=== PATIENT | female | born 1955 | race Caucasian/White ===

== ENCOUNTER 2022-10-25 07:30 | Observation (INO) | payer MEDICARE ==
[2022-10-22 11:06] VITALS: BMI 27.6
[2022-10-25] MEDS ORDERED: Ropivacaine 0.5% HCl/PF (150 MG/30 ML VIAL) ONE (07:41)
[2022-10-25] MEDS ORDERED: Midazolam HCl 2 mg/2 ml Vial ONE (07:41)
[2022-10-25] MEDS ORDERED: fentaNYL 50 mcg/mL 1 mL Vial ONE ×2 (07:41→11:26)
[2022-10-25] MEDS ORDERED: Vancomycin 1 GM/200 ML (FROZEN) BAG ONE (08:14)
[2022-10-25] MEDS ORDERED: Tranexamic Acid 1,000 MG/10 ML VIAL ONE (08:14)
[2022-10-25] MEDS ORDERED: Sodium Chloride 0.9% 100 ML ONE ×2 (08:15→09:30)
[2022-10-25] MEDS ORDERED: diphenhydrAMINE 25 MG CAP PO PRN (09:23)
[2022-10-25] MEDS ORDERED: Zolpidem Tartrate 5 MG TAB PO PRN (09:23)
[2022-10-25] MEDS ORDERED: fentaNYL 50 mcg/mL 1 mL Vial SLOW IVP PRN (09:23)
[2022-10-25] MEDS ORDERED: HYDROcodone/Acetaminophen 10/325 mg Tablet PO PRN (09:23)
[2022-10-25] MEDS ORDERED: Ondansetron PF 4 MG/2 ML Vial IVP PRN (09:23)
[2022-10-25] MEDS ORDERED: Promethazine HCl 25 MG/ML VIAL IM PRN (09:23)
[2022-10-25] MEDS ORDERED: Acetaminophen 325 MG TAB PO PRN (09:23)
[2022-10-25] MEDS ORDERED: Bupivacaine HCl 0.5%/Epinephrine 1:200,000/PF 30 ml Vial ONE (09:27)
[2022-10-25] MEDS ORDERED: Cholecalciferol 1,000 UNITS (25 MCG) TAB PO SCH (09:30)
[2022-10-25] MEDS ORDERED: CEFAZOLIN 2 GM VIAL ONE (09:30)
[2022-10-25] MEDS ORDERED: CEFAZOLIN 2 GM in Sodium Chloride 0.9% 100 ML IVPB SCH (10:00)
[2022-10-25] MEDS ORDERED: PHENYLEPHRINE-NS 100 MCG/ML 10 ML SYRINGE ONE (10:03)
[2022-10-25] MEDS ORDERED: GLYCOPYRROLATE/PF 0.2 MG/ML VIAL ONE (10:03)
[2022-10-25] MEDS ORDERED: Ketorolac Tromethamine 30 MG/ML VIAL ONE (11:45)
[2022-10-25] MEDS: HYDROcodone/Acetaminophen 10/325 mg Tablet PO PRN ×3 (13:46→22:16)
[2022-10-25] MEDS ORDERED: Ketorolac Tromethamine 30 MG/ML VIAL IVP SCH (14:00)
[2022-10-25] MEDS: CEFAZOLIN 2 GM in Sodium Chloride 0.9% 100 ML IVPB SCH (16:41)
[2022-10-25] MEDS: Sodium Chloride 0.9% 1,000 ML IV SCH ×2 (17:41→20:45)
[2022-10-25] MEDS: Ketorolac Tromethamine 30 MG/ML VIAL IVP SCH (20:47)
[2022-10-25] MEDS: Aspirin 81 mg Enteric Coated Tablet PO SCH (20:50)
[2022-10-25] MEDS: Senokot S 8.6-50 MG TAB PO SCH (20:51)
[2022-10-25] MEDS: Ferrous Gluconate 324 MG TAB PO SCH (20:51)
[2022-10-25] MEDS ORDERED: Rosuvastatin 5 MG TAB PO SCH (21:00)
[2022-10-26] MEDS: CEFAZOLIN 2 GM in Sodium Chloride 0.9% 100 ML IVPB SCH (01:52)
[2022-10-26] MEDS: HYDROcodone/Acetaminophen 10/325 mg Tablet PO PRN ×4 (01:53→14:08)
[2022-10-26] MEDS: Sodium Chloride 0.9% 1,000 ML IV SCH (04:24)
[2022-10-26] MEDS: Ketorolac Tromethamine 30 MG/ML VIAL IVP SCH ×2 (04:36→11:28)
[2022-10-26 05:31] LABS: Hemoglobin 11.4 g/dL (12.0-16.0); Mean Corpuscular HGB CONC 31.8 g/dL (32.0-36.0); Mean Corpuscular Volume 91.3 fl (78.0-98.0); Mean Platelet Volume 9.3 fL (7.4-10.4); Platelet Count 221 10x3/uL (130-400); RBC Distribution Width 13.2 % (11.5-14.5); Red Blood Cell (RBC) Count 3.93 mill/uL (4.20-5.40); White Blood Cell (WBC) Count 11.4 10x3/uL (4.8-10.8)
[2022-10-26] MEDS: Aspirin 81 mg Enteric Coated Tablet PO SCH (08:52)
[2022-10-26] MEDS: Senokot S 8.6-50 MG TAB PO SCH (08:52)
[2022-10-26] MEDS: Ferrous Gluconate 324 MG TAB PO SCH (08:53)
[2022-10-26] MEDS ORDERED: Amlodipine 10 MG TAB PO SCH (09:00)
[2022-10-26] MEDS ORDERED: Multivitamin W/ Minerals 1 TAB PO SCH (09:00)
[2022-10-26] MEDS ORDERED: Famotidine 20 MG TAB PO SCH (09:45)
[2022-10-26 11:31] VITALS: TEMP 97.9
[2022-10-26 15:31] VITALS: BP 99/63
== END 2022-10-26 16:04 | disposition home or self-care (01) ==
LOC: SDC 07:30 → SJJU 12:56
PROVIDERS: ADMIT Orthopaedic Surgery; ATTEND Orthopaedic Surgery
PROC: 0SR9069 Replacement of Right Hip Joint with Oxidized Zirconium on Polyethylene Synthetic Substitute, Cemented, Open Approach (ICD-10-PCS; principal; 2022-10-25)
DX: M16.11 Unilateral primary osteoarthritis, right hip (principal); J45.909 Unspecified asthma, uncomplicated; I10 Essential (primary) hypertension; R63.5 Abnormal weight gain; Z79.899 Other long term (current) drug therapy
CPT/HCPCS: 27130; 73502; 85027; 97110 ×2; 97116; 97530; 97535; C1776; J3010; J3370; J3490; 36415; J1885; J2250; J2405; J2795; J7050

== ENCOUNTER 2024-03-26 19:13 | Inpatient (IN) | payer MEDICARE ==
[2024-03-26] MEDS ORDERED: fentaNYL 50 mcg/mL 1 mL Vial ONE (20:19)
[2024-03-26 20:52] LABS: #Basophils 0.03 10x3/uL (0.0-0.2); %Basophils 0.3 % (0.0-1.0); %Eosinophils 1.5 % (0.0-10.0); %Lymphocytes 27.1 % (21.0-51.0); %Monocytes 6.7 % (0.0-10.0); %Neutrophils 64.2 % (42.0-75.0); Hematocrit 39.8 % (36.0-47.0); Hemoglobin 12.9 g/dL (12.0-16.0); Mean Corpuscular HGB CONC 32.4 g/dL (32.0-36.0); Mean Corpuscular Hemoglobin 29.5 pg (27.0-31.0); Mean Corpuscular Volume 90.9 fL (78.0-98.0); Mean Platelet Volume 9.1 fL (7.4-10.4); Platelet Count 227 10x3/uL (130-400); RBC Distribution Width 13.1 % (11.5-14.5); Red Blood Cell (RBC) Count 4.38 mill/uL (4.20-5.40)
[2024-03-26 21:09] LABS: ALT (SGPT) 20 U/L (8-55); AST (SGOT) 28 U/L (5-34); Albumin 4.5 g/dL (3.4-4.8); Alkaline Phosphatase 93 U/L (40-110); Anion Gap 16 mmol/L (10-20); BUN (Urea Nitrogen) 22 mg/dL (9.8-20.1); Bilirubin, Total 0.3 mg/dL (0.2-1.2); Calc. Creatinine Clearance 0 mL/min (70-130); Calcium 9.7 mg/dL (7.8-10.44); Carbon Dioxide 21 mmol/L (23-31); Chloride 105 mmol/L (98-107); Estimated GFR 60; Globulin 3.5 g/dL (2.4-3.5); Glucose 103 mg/dL (80-115); Potassium 3.7 mmol/L (3.5-5.1); Sodium 138 mmol/L (136-145)
[2024-03-27] MEDS ORDERED: Ondansetron PF 4 MG/2 ML Vial IVP PRN (01:15)
[2024-03-27] MEDS ORDERED: Ondansetron ODT 4 MG TAB SL PRN (01:15)
[2024-03-27] MEDS ORDERED: Dextrose 5% in Water 1,000 ML IV PRN (01:35)
[2024-03-27] MEDS ORDERED: Dextrose 50% Abboject 50 ML SYRINGE SLOW IVP PRN (01:35)
[2024-03-27] MEDS ORDERED: Glucagon 1 MG/ML KIT IM PRN (01:35)
[2024-03-27] MEDS ORDERED: Promethazine HCl 25 MG/ML VIAL IM PRN (01:35)
[2024-03-27] MEDS ORDERED: fentaNYL 50 mcg/mL 1 mL Vial ONE ×2 (01:40→09:30)
[2024-03-27 02:31] VITALS: BMI 30.9
[2024-03-27 05:41] LABS: #Basophils 0.03 10x3/uL (0.0-0.2); %Basophils 0.4 % (0.0-1.0); %Eosinophils 1.7 % (0.0-10.0); %Lymphocytes 28.6 % (21.0-51.0); %Monocytes 9.8 % (0.0-10.0); %Neutrophils 59.2 % (42.0-75.0); Hematocrit 34.6 % (36.0-47.0); Hemoglobin 11.2 g/dL (12.0-16.0); Mean Corpuscular HGB CONC 32.4 g/dL (32.0-36.0); Mean Corpuscular Hemoglobin 29.2 pg (27.0-31.0); Mean Corpuscular Volume 90.3 fL (78.0-98.0); Mean Platelet Volume 9.2 fL (7.4-10.4); Platelet Count 210 10x3/uL (130-400); RBC Distribution Width 13.1 % (11.5-14.5); Red Blood Cell (RBC) Count 3.83 mill/uL (4.20-5.40)
[2024-03-27 06:01] LABS: Anion Gap 11 mmol/L (10-20); BUN (Urea Nitrogen) 17 mg/dL (9.8-20.1); Calc. Creatinine Clearance 88 mL/min (70-130); Calcium 9.1 mg/dL (7.8-10.44); Carbon Dioxide 25 mmol/L (23-31); Chloride 107 mmol/L (98-107); Estimated GFR 76; Glucose 117 mg/dL (80-115); Potassium 3.8 mmol/L (3.5-5.1); Sodium 139 mmol/L (136-145)
[2024-03-27] MEDS ORDERED: CEFAZOLIN 2 GM in Sodium Chloride 0.9% 100 ML IVPB SCH (07:15)
[2024-03-27] MEDS ORDERED: CEFAZOLIN 2 GM VIAL ONE (09:30)
[2024-03-27] MEDS: Famotidine 20 MG TAB PO SCH (10:31)
[2024-03-27] MEDS: Morphine 4 MG/ML VIAL ONE (10:31)
[2024-03-27] MEDS: Morphine 2 MG/ML VIAL SLOW IVP SCH (10:31)
[2024-03-27] MEDS ORDERED: PROPOFOL 20 ML ONE ×2 (11:35→12:11)
[2024-03-27] MEDS ORDERED: fentaNYL PF 100 MCG/2 ML SYRINGE ONE ×3 (11:35→13:18)
[2024-03-27] MEDS ORDERED: Lidocaine 1% PF 5 ML VIAL ONE (11:35)
[2024-03-27] MEDS ORDERED: Ondansetron PF 4 MG/2 ML Vial ONE (11:35)
[2024-03-27] MEDS ORDERED: ePHEDrine Sulfate 50 MG/10 ML VIAL ONE (11:55)
[2024-03-27] MEDS ORDERED: Glycopyrrolate 0.2 MG/ML 5 ML SYRINGE ONE (12:00)
[2024-03-27] MEDS ORDERED: PHENYLEPHRINE-NS 100 MCG/ML 10 ML SYRINGE ONE (12:00)
[2024-03-27] MEDS ORDERED: HYDROmorphone 0.5 MG/0.5 ML SYRINGE ONE (12:53)
[2024-03-27] MEDS ORDERED: Midazolam HCl 2 mg/2 ml Vial ONE (13:49)
[2024-03-27] MEDS: traMADol HCl 50 MG TAB PO PRN (18:52)
[2024-03-27] MEDS: CEFAZOLIN 2 GM in Sodium Chloride 0.9% 100 ML IVPB SCH (18:55)
[2024-03-27] MEDS: Loratadine 10 MG TAB PO PRN (22:24)
[2024-03-28 03:40] LABS: #Basophils Less than 0.03 10x3/uL (0.0-0.2); #Eosinophils Less than 0.03 10x3/uL (0.0-0.7); %Lymphocytes 12.4 % (21.0-51.0); %Monocytes 3.5 % (0.0-10.0); %Neutrophils 83.8 % (42.0-75.0); Hematocrit 33.5 % (36.0-47.0); Mean Corpuscular HGB CONC 32.8 g/dL (32.0-36.0); Mean Corpuscular Hemoglobin 29.2 pg (27.0-31.0); Mean Corpuscular Volume 88.9 fL (78.0-98.0); Mean Platelet Volume 9.2 fL (7.4-10.4); Platelet Count 226 10x3/uL (130-400); RBC Distribution Width 13.2 % (11.5-14.5); Red Blood Cell (RBC) Count 3.77 mill/uL (4.20-5.40)
[2024-03-28] MEDS: Acetaminophen 325 MG TAB PO PRN (06:52)
[2024-03-28] MEDS: HYDROcodone/Acetaminophen 5/325 mg Tablet PO PRN (09:02)
[2024-03-29] MEDS: Senokot S 8.6-50 MG TAB PO SCH (20:13)
[2024-03-30] MEDS: Enoxaparin 30 MG (0.3 mL) SYRINGE SC SCH (09:19)
[2024-04-01 16:27] VITALS: BP 122/75; TEMP 97.8
== END 2024-04-01 16:30 | disposition home or self-care (01) | DRG 494 ==
LOC: ERS 19:13 → SURG A 03-27 00:58
PROVIDERS: ADMIT Specialist; ATTEND Specialist
PROC: 0QSG04Z Reposition Right Tibia with Internal Fixation Device, Open Approach (ICD-10-PCS; principal; 2024-03-27)
DX: S82.151A Displaced fracture of right tibial tuberosity, initial encounter for closed fracture (principal); E78.5 Hyperlipidemia, unspecified; W01.0XXA Fall on same level from slipping, tripping and stumbling without subsequent striking against object, initial encounter; Y93.01 Activity, walking, marching and hiking; I10 Essential (primary) hypertension; G89.29 Other chronic pain; M54.9 Dorsalgia, unspecified; M19.90 Unspecified osteoarthritis, unspecified site; E66.9 Obesity, unspecified; Z68.31 Body mass index [BMI] 31.0-31.9, adult; Y92.89 Other specified places as the place of occurrence of the external cause; Z79.899 Other long term (current) drug therapy; Z79.891 Long term (current) use of opiate analgesic; Z87.891 Personal history of nicotine dependence
CPT/HCPCS: 36415; 70450; 72125; 80048; 80053; 85025; 96374; 96376; C1713; C1889; G0390; J1650; J2250; J2405; J2704; J3010

== ENCOUNTER 2025-03-18 05:56 | Day surgery (SDC) | payer MEDICARE ==
[2025-03-17 11:20] VITALS: BMI 29.5
[2025-03-18] MEDS ORDERED: CEFAZOLIN 2 GM VIAL ONE (07:01)
[2025-03-18] MEDS ORDERED: Lidocaine 1% PF 5 ML VIAL ONE (07:29)
[2025-03-18] MEDS ORDERED: PROPOFOL 200 MG/20 ML VIAL ONE (07:29)
[2025-03-18] MEDS ORDERED: fentaNYL PF 100 MCG/2 ML SYRINGE ONE (08:11)
[2025-03-18] MEDS ORDERED: Ketorolac Tromethamine 30 MG (1 mL) VIAL ONE (08:21)
[2025-03-18] MEDS ORDERED: Ondansetron PF 4 MG/2 ML Vial ONE (08:35)
== END 2025-03-18 10:00 | disposition home or self-care (01) ==
LOC: SDC 05:56
PROVIDERS: ATTEND Orthopaedic Surgery
PROC: 0SPC0JZ Removal of Synthetic Substitute from Right Knee Joint, Open Approach (ICD-10-PCS; principal; 2025-03-18)
DX: T84.84XA Pain due to internal orthopedic prosthetic devices, implants and grafts, initial encounter (principal); Y83.1 Surgical operation with implant of artificial internal device as the cause of abnormal reaction of the patient, or of later complication, without mention of misadventure at the time of the procedure; I10 Essential (primary) hypertension; Z87.891 Personal history of nicotine dependence; Z90.49 Acquired absence of other specified parts of digestive tract; Z98.890 Other specified postprocedural states; Z79.899 Other long term (current) drug therapy
CPT/HCPCS: 20680; 73590; 93005; J1100 ×2; J1885; J2250; J2405; J2704; J3010; 93010; J0169; J0665